=== PATIENT | male | born 1960 | race Caucasian/White ===

== ENCOUNTER → 2021-05-09 14:13 | Outpatient (CLI) | payer BC, SELFPAY | PROVIDERS: PCP Family Medicine; Visit Provider Family Medicine | DX: G47.33 Obstructive sleep apnea (adult) (pediatric) (principal) | CPT/HCPCS: G0399 ==

== ENCOUNTER → 2021-06-06 20:46 | Outpatient (CLI) | payer BC, SELFPAY | PROVIDERS: PCP Specialist; Visit Provider Specialist | DX: G47.33 Obstructive sleep apnea (adult) (pediatric) (principal) | CPT/HCPCS: G0399 ==

== ENCOUNTER → 2023-04-19 16:28 | Outpatient (CLI) | payer BC, SELFPAY ==
[2023-04-19 15:42] LABS: Basophils # 0.1 K/mm3 (0-0.2); Basophils % 0.7 % (0.1-2.0); Eosinophils # 0.4 K/mm3 (0.0-0.4); Eosinophils % 5.8 % (0.1-12.0); Hematocrit 48.4 % (42.0-52.0); Lymphocytes # 3.1 K/mm3 (0.7-4.5); Lymphocytes % 41.1 % (10-50); Mean Corpuscular HGB Conc 33.2 g/dL (31.8-35.4); Mean Corpuscular Hemoglobin 31.8 pg (27.0-31.2); Mean Corpuscular Volume 95.8 fl (80-94); Mean Platelet Volume 8.8 fl (7.4-10.4); Monocytes # 0.5 K/mm3 (0.1-1.0); Monocytes % 6.5 % (1.7-9.3); Neutrophils # 3.4 K/mm3 (1.8-7.8); Neutrophils % 45.9 % (37.0-80.0); Platelet Count 237 K/mm3 (142-424); Red Blood Count 5.05 M/mm3 (4.60-6.20); Red Cell Distribution Width 13.4 % (11.5-17.5); White Blood Count 7.5 K/mm3 (4.8-10.8)
[2023-04-19 16:00] LABS: Chloride 107 mmol/L (98-107); Potassium 4.3 mmoL/L (3.5-5.1); Sodium 140 mmol/L (136-145)
[2023-04-19 16:03] LABS: Alanine Aminotransferase 52 U/L (12-78); Alkaline Phosphatase 66 U/L (38-126); Anion Gap 17.3 mEq/L (5-15); Aspartate Amino Transferase 45 U/L (17-59); Bilirubin,Total 0.8 mg/dl (0.2-1.3); Blood Urea Nitrogen 18 mg/dl (9-20); Carbon Dioxide 20 mmol/L (22.0-30.0); Cholesterol 286 mg/dl (140-200); Estimated Glomerular Filt Rate 85 ml/min (>60); GFR (African American) 103 ML/MIN (>60); Total Protein,Serum 7.5 g/dl (6.3-8.2); Triglycerides 269 mg/dl (30-150); VLDL Cholesterol 54 mg/dL (0-40)
[2023-04-19 16:04] LABS: Calcium 9.4 mg/dl (8.4-10.2); Glucose 98 mg/dl (74-100); HDL Cholesterol 35 mg/dl (40-60)
[2023-04-19 16:06] LABS: Chol/HDL Ratio 8.2 (1-3.5)
[2023-04-19 16:14] LABS: Direct LDL Cholesterol 174.94 mg/dL (100-129)
[2023-04-19 16:20] LABS: 25-OH Vitamin D, Total 35.6 ng/mL (30-100)
[2023-04-19 16:21] LABS: Free T4 (Free Thyroxine) 1.59 ng/dl (0.78-2.19)
[2023-04-19 16:35] LABS: Thyroid Stimulating Hormone 0.55 uIU/mL (0.465-4.68)
[2023-04-19 16:40] LABS: Hemoglobin A1C 5.4 % (4.0-6.0)
[2023-04-19 18:45] LABS: Albumin Level 4.1 g/dl (3.5-5.0); Albumin/Globulin Ratio 1.2 (1.1-1.8); Globulin 3.4 g/dL (1.3-3.2)
[2023-04-21 11:34] LABS: HCV Ab Non Reactive (Non Reactive); HIV Screen 4th Generation wRfx Non Reactive (Non Reactive)
[2023-04-27 04:32] LABS: Testosterone, Total, LC/MS 359 ng/dL (.)
== END ==
PROVIDERS: PCP Internal Medicine; Visit Provider Internal Medicine
DX: Z00.00 Encounter for general adult medical examination without abnormal findings (principal); Z13.21 Encounter for screening for nutritional disorder; Z13.29 Encounter for screening for other suspected endocrine disorder; Z13.220 Encounter for screening for lipoid disorders; R79.89 Other specified abnormal findings of blood chemistry; E66.9 Obesity, unspecified; Z68.33 Body mass index [BMI] 33.0-33.9, adult; Z11.59 Encounter for screening for other viral diseases; Z13.1 Encounter for screening for diabetes mellitus; Z11.4 Encounter for screening for human immunodeficiency virus [HIV]
CPT/HCPCS: 80053; 80061; 82306; 83036; 84403; 84439; 84443; 85025; 86703; G0432

== ENCOUNTER → 2023-07-10 14:03 | Outpatient (POV) | payer BC, SELFPAY | PROVIDERS: PCP Internal Medicine; Visit Provider Dermatology | DX: Z00.00 Encounter for general adult medical examination without abnormal findings (principal) ==